=== PATIENT | male | born 1980 | race Caucasian/White ===

== ENCOUNTER 2018-01-18 11:53 | Outpatient (CLI) | payer BC | END 2018-01-18 11:54 | disposition home or self-care (01) | LOC: BICRAD 11:53 | PROVIDERS: ATTEND Internal Medicine Rheumatology | DX: M25.551 Pain in right hip (principal); M25.552 Pain in left hip; M25.852 Other specified joint disorders, left hip; M25.851 Other specified joint disorders, right hip | CPT/HCPCS: 72170 ==

== ENCOUNTER 2018-04-05 14:30 | Outpatient (CLI) | payer BC | END 2018-04-05 14:31 | disposition home or self-care (01) | LOC: BICMRI 14:30 | PROVIDERS: ATTEND Internal Medicine Rheumatology | DX: M25.851 Other specified joint disorders, right hip (principal); M25.852 Other specified joint disorders, left hip ==

== ENCOUNTER 2018-04-09 08:24 | Outpatient (CLI) | payer BC ==
--- NOTE | 2018-04-09 10:47 | MRI ---
MRI OF THE LEFT HIP: DATE: 04/09/18. PROVIDED CLINICAL HISTORY: Left hip pain. FINDINGS: The left hip flexor, abductor, adductor, and hamstring tendons demonstrate an intact MR appearance. The amount of fluid within the left hip joint appears physiologic. The acetabular labrum and femoral -acetabular articular cartilage are suboptimally evaluated in the absence of joint distention but alexus ear grossly normal. The courses of the regional major neurovascular structures appear unremarkable. Regional marrow and muscular signal appear unremarkable. IMPRESSION: Unremarkable MRI of the left hip. POS: [id number]
== END 2018-04-09 08:25 | disposition home or self-care (01) ==
LOC: MRI 08:24
PROVIDERS: ATTEND Internal Medicine Rheumatology
DX: M25.552 Pain in left hip (principal)

== ENCOUNTER 2021-04-25 13:27 | Outpatient (CLI) | payer BC | END 2021-04-25 13:28 | disposition home or self-care (01) | LOC: ULT 13:27 | PROVIDERS: ATTEND Family Medicine | DX: N50.89 Other specified disorders of the male genital organs (principal) | CPT/HCPCS: 76870; 93976 ==